=== PATIENT | male | born 1955 | race Caucasian/White ===

== ENCOUNTER → 2019-07-10 | Outpatient (CLI) | payer MEDICAID ==
[2019-07-10 12:46] LABS: HEMOGLOBIN 14.1 G/DL (13.3-17.7); MEAN CORPUSCULAR HEMOGLOBIN 30 PG (25-34); WHITE BLOOD COUNT 15.1 10^3/uL (4.3-11.0)
[2019-07-10 12:47] LABS: BASOPHILS % (AUTO) 0 % (0-10); EOSINOPHILS # (AUTO) 0.3 10^3/uL (0.0-0.3); EOSINOPHILS % (AUTO) 2 % (0-10); HEMATOCRIT 43 % (40-54); LYMPHOCYTES # (AUTO) 3.2 X 10^3 (1.0-4.0); LYMPHOCYTES % (AUTO) 21 % (12-44); MEAN CORPUSCULAR HGB CONC 33 G/DL (32-36); MEAN CORPUSCULAR VOLUME 92 FL (80-99); MEAN PLATELET VOLUME 9.8 FL (7.4-10.4); MONOCYTES # (AUTO) 1.7 X 10^3 (0.0-1.0); MONOCYTES % (AUTO) 11 % (0-12); NEUTROPHILS % (AUTO) 66 % (42-75); PLATELET COUNT 262 10^3/uL (130-400); RED CELL DISTRIBUTION WIDTH 13.3 % (10.0-14.5)
[2019-07-10 13:04] LABS: CARBON DIOXIDE 22 MMOL/L (21-32); CHLORIDE 100 MMOL/L (98-107); POTASSIUM 4.3 MMOL/L (3.6-5.0); SODIUM 136 MMOL/L (135-145)
[2019-07-10 13:05] LABS: ALANINE AMINOTRANSFERASE 52 U/L (0-55); ALBUMIN 3.5 GM/DL (3.2-4.5); ALKALINE PHOSPHATASE 146 U/L (40-136); BILIRUBIN,TOTAL 0.5 MG/DL (0.1-1.0); BUN/CREATININE RATIO 16; CALCIUM 9.8 MG/DL (8.5-10.1); CREATININE SERUM 0.97 MG/DL (0.60-1.30); GFR ESTIMATED > 60; GLUCOSE 118 MG/DL (70-105); TOTAL PROTEIN 8.1 GM/DL (6.4-8.2)
[2019-07-10 14:50] LABS: BAND NEUTROPHILS 6 %; BASOPHILS % (MANUAL) 0 %; EOSINOPHILS % (MANUAL) 1 %; LYMPHOCYTES % (MANUAL) 24 %; MONOCYTES % (MANUAL) 11 %; NEUTROPHILS % (MANUAL) 58 %; RBC MORPH NORMAL
== END ==
LOC: LAB FS 11:44
PROVIDERS: ATTEND Family Medicine
DX: A41.9 Sepsis, unspecified organism (principal)
CPT/HCPCS: 36415; 80053; 85007; 85027

== ENCOUNTER → 2019-07-12 | Outpatient (CLI) | payer MEDICAID | LOC: LAB FS 19:48 | PROVIDERS: ATTEND Internal Medicine Infectious Disease | DX: A40.0 Sepsis due to streptococcus, group A (principal) | CPT/HCPCS: 87040 ==

== ENCOUNTER 2020-09-15 12:04 | Emergency (ER) | payer MEDICAID ==
[2020-09-15 12:07] VITALS: BP 159/89
--- NOTE | 2020-09-15 12:07 | ED Upper Extremity ---
General Stated Complaint: LEFT THUMB INJ History of Present Illness Date Seen by Provider: Sep 15, 2020 Time Seen by Provider: 12:10 Initial Comments 65-year-old male presents with left thumb and left second digit injury. Patient reports he was moving furniture. He reports that furniture kind of fell hit him in the left hand. He has abrasions/ulcerations on dorsal surface of the left thumb and second knuckle. He has a small laceration on the palmar aspect of the left thumb. He has full range of motion. Reports the fingers feel mildly numb and just want to have it checked out. Patient is unsure when his last tetanus was. Allergies and Home Medications Allergies Coded Allergies: NSAIDS (Non-Steroidal Anti-Inflamma (Verified Allergy, Unknown, 09/15/20) Patient Home Medication List Home Medication List Reviewed: Yes Review of Systems Constitutional: no symptoms reported EENTM: no symptoms reported Respiratory: no symptoms reported Cardiovascular: no symptoms reported Gastrointestinal: no symptoms reported Genitourinary: no symptoms reported Musculoskeletal: see HPI Skin: see HPI Psychiatric/Neurological: See HPI Physical Exam Vital Signs Vital Signs - First Documented 09/15/20 12:07 Temp 35.6 Pulse 64 Resp 16 B/P (MAP) 159/89 (112) Pulse Ox 98 Capillary Refill : Height, Weight, BMI Height: '" Weight: lbs. oz. kg; BMI Method: General Appearance: WD/WN, no apparent distress Neck: full range of motion, supple Cardiovascular: normal peripheral pulses, regular rate, rhythm Respiratory: lungs clear, normal breath sounds Shoulder: normal inspection Elbow/Forearm: normal inspection Wrist: Yes normal inspection Hand: deformity, soft tissue tenderness Neurologic/Psychiatric: no motor/sensory deficits, alert, normal mood/affect, oriented x 3 Skin: other (Small skin avulsions dorsal aspect of left and proximal aspect/knuckle second finger. Small superficial laceration palmar aspect left thumb approximately 1-1/2 cm.) Procedures/Interventions Wound Location: Upper Extremities Other Wound Location left thumb Wound's Depth, Shape: superficial, linear Wound Explored: clean Other Closure Supply: Wound Adhesive Progress Patient with close approximation, tolerated well. No immediate complication Progress/Results/Core Measures Results/Orders My Orders Orders - TAZ NASH DO Hand 3 View Left (09/15/20 12:09) DiphtPertuss(Acell),Tet Adult (Boostrix (09/15/20 12:30) Medications Given in ED Current Medications Medications Dose Ordered Sig/Shirley Route Start Time Stop Time Status Last Admin Dose Admin Diphtheria/ Tetanus/Acell Pertussis 0.5 ml ONCE ONCE IM 09/15/20 12:30 09/15/20 12:31 DC 09/15/20 12:44 0.5 ML Vital Signs/I&O 09/15/20 12:07 Temp 35.6 Pulse 64 Resp 16 B/P (MAP) 159/89 (112) Pulse Ox 98 Diagnostic Imaging Diagonstic Imaging: Xray Comments HAND 3 VIEW LEFT INDICATION: Smashed hand in door. Thumb and index finger injury. FINDINGS: There are no findings of an acute fracture. There is no joint dislocation. There are mild arthritic changes within the wrist. There are also mild arthritic changes within the interphalangeal joints. There is chondrocalcinosis of the level the triangular fibrocartilage. IMPRESSION: Mild finger and wrist osteoarthritic changes without evidence of acute fracture or malalignment. Reviewed: Reviewed by Me, Reviewed/Discussed Departure Impression Primary Impression: Laceration of left thumb without complication Qualified Codes: S61.012A - Laceration without foreign body of left thumb without damage to nail, initial encounter Additional Impressions: Contusion of left hand Qualified Codes: S60.222A - Contusion of left hand, initial encounter Avulsion of skin of left hand Qualified Codes: S61.402A - Unspecified open wound of left hand, initial encounter Disposition: HOME, SELF-CARE Condition: Stable Departure-Patient Inst. Referrals: PEDRO ORANTES MD (PCP/Family) Primary Care Physician Patient Instructions: Laceration Repair With Glue ED, Wound Care (DC), Hand Pain (DC) Scripts Oxycodone HCl/Acetaminophen (Percocet 5-325 mg Tablet) 1 Each Tablet 1 TAB PO Q8H for PAIN-MODERATE MDD 6 TABS for 1 Day, #5 TAB Prov: TAZ NASH DO 09/15/20 TAZ NASH DO Sep 15, 2020 12:07
[2020-09-15] MEDS ORDERED: TETANUS,DIPTH,PERTUSS P/F (BOOSTRIX) 0.5 ML VIAL IM ONE (12:30)
--- NOTE | 2020-09-15 12:34 | Diagnostic Imaging Report ---
INDICATION: Smashed hand in door. Thumb and index finger injury. FINDINGS: There are no findings of an acute fracture. There is no joint dislocation. There are mild arthritic changes within the wrist. There are also mild arthritic changes within the interphalangeal joints. There is chondrocalcinosis of the level the triangular fibrocartilage. IMPRESSION: Mild finger and wrist osteoarthritic changes without evidence of acute fracture or malalignment. Dictated by: Dictated on workstation # [id number]
[2020-09-15] MEDS ORDERED: OXYC1TAB87 PO (12:47)
== END 2020-09-15 12:54 | disposition home or self-care (01) ==
LOC: EDUNIT# 12:04 → ER FS 12:05
DX: S61.012A Laceration without foreign body of left thumb without damage to nail, initial encounter (principal); S61.201A Unspecified open wound of left index finger without damage to nail, initial encounter; S60.222A Contusion of left hand, initial encounter; Z23 Encounter for immunization; W22.8XXA Striking against or struck by other objects, initial encounter
CPT/HCPCS: 73130; 90715

== ENCOUNTER 2022-08-11 13:30 | Emergency (ER) | payer MEDICARE, MEDICAID ==
[~2022-08-11 13:30] MED LIST: OXYC1TAB87 PO
--- NOTE | 2022-08-11 13:51 | ED General ---
General Stated Complaint: RT ELBOW PAIN/NUMBNESS Source of Information: Patient History of Present Illness Date Seen by Provider: Aug 11, 2022 Time Seen by Provider: 13:32 Initial Comments 67-year-old male presenting with complaints of 10 to 14 days of his right arm having pain at the elbow and getting numbness and tingling from the elbow down. He states that this started around the time that he had his Prograf dose doubled. He has labs scheduled for the morning to get a check of his Prograf level as well as his Keppra level. He states that since they doubled his Prograf dose he has been feeling like he was about to have a temporal lobe seizure. He also feels like he is not getting enough oxygen. He had poke with his primary care provider last week and they told him it might be arthritis and ordered a Keppra level. He is to have labs done in the morning. When he talked to the renal transplant team today they recommended that he go to the emergency department. Timing/Duration: Other (10 to 14 days) Severity: Moderate Modifying Factors: worse with Movement (Certain movements seem to trigger the symptoms of his arm.) Associated Systoms: No Chest Pain, No Cough, No Diaphoresis, No Fever/Chills, No Headaches, No Loss of Appetite, No Malaise, No Nausea/Vomiting, No Rash, No Seizure, No Shortness of Air, No Syncope, No Weakness Allergies and Home Medications Allergies Coded Allergies: NSAIDS (Non-Steroidal Anti-Inflamma (Verified Allergy, Unknown, 09/15/20) Patient Home Medication List Home Medication List Reviewed: Yes Oxycodone HCl/Acetaminophen (Percocet 5-325 mg Tablet) 1 Each Tablet, 1 TAB PO Q8H Prescribed by: TAZ NASH on 09/15/20 1247 Review of Systems Review of Systems Constitutional: No chills, No fever EENTM: no symptoms reported Respiratory: no symptoms reported Cardiovascular: no symptoms reported Gastrointestinal: no symptoms reported Genitourinary: no symptoms reported Musculoskeletal: see HPI Skin: No change in color Psychiatric/Neurological: See HPI Past Yrgskxk-Wauudk-Dcstau Hx Past Medical History Surgery/Hospitalization HX: Renal transplant patient Physical Exam Vital Signs Capillary Refill : Height, Weight, BMI Height: '" Weight: lbs. oz. kg; BMI Method: General Appearance: No Apparent Distress, WD/WN HEENT: PERRL/EOMI, Pharynx Normal Respiratory: Chest Non Tender, Lungs Clear, Normal Breath Sounds Cardiovascular: Regular Rate, Rhythm, Normal Peripheral Pulses Neurologic/Psychiatric: Alert, Oriented x3 Progress/Results/Core Measures Suspected Sepsis SIRS Temperature: Pulse: Respiratory Rate: Blood Pressure / Mean: Results/Orders Vital Signs/I&O Capillary Refill : Progress Note : Progress Note Potential diagnosis of peripheral neuropathy, ulnar nerve entrapment, bursitis, cervical radiculopathy, medication side effect. He has strong equal pulses at the wrist and normal range of motion. He has some tenderness to palpation over the olecranon on his right arm. He was concerned there was a blood vessel that was causing his arm to go numb. This sounds more like a nerve issue and he might require some nerve conduction studies however checking the labs to look at his Prograf level and Keppra level would be appropriate as a first step. Encouraged to check with his regular provider or the transplant providers if he did not have any abnormal labs for his drug levels. They may need to set him up for nerve conduction studies or further testing of the right upper extremity and neck. Departure Impression Primary Impression: Neuropathy of right upper extremity Additional Impression: Elbow pain, right Disposition: 01 HOME, SELF-CARE Condition: Stable Departure-Patient Inst. Decision time for Depature: 13:51 Referrals: CLIFTON ANDRADE APRN (PCP) Primary Care Physician PEDRO ORANTES MD (Family) Primary Care Physician Patient Instructions: Neuropathic pain, Peripheral Neuropathy (DC) Add. Discharge Instructions: Your primary care provider or transplant provider may need to order Nerve Conduction studies to look for damage or irritation to your nerves in the arm that are causing pain and numbness to your arm. The Prograf (Tacrolimus) can have an effect on the nerves and can potentially cause some neuropathy. See what your level is when they check your labs tomorrow and see what the transplant doctors recommend based on those results. VINCENT ABERNATHY MD Aug 11, 2022 13:51
[2022-08-11 14:00] VITALS: BP 156/103
== END 2022-08-11 14:00 | disposition home or self-care (01) ==
LOC: EDUNIT# 13:30 → ER FS 13:31
DX: G56.91 Unspecified mononeuropathy of right upper limb (principal)
CPT/HCPCS: 99281